=== PATIENT | female | born 1990 | race Caucasian/White ===

== ENCOUNTER 2021-06-17 06:10 | Inpatient (IN) | payer MEDICAID, SELFPAY ==
[2021-06-17] VITALS (29 sets, daily range): BP systolic 95–151; BP diastolic 50–93; PULSE 41–137; RESP 16; TEMP 36.3–36.8; O2SAT 81–100; BMI 24.4
[2021-06-17 06:39] LABS: Absolute Lymphocyte Count 2.88 X10^3/uL (0.83-4.51); Absolute Neutrophil Count 12.2 X10^3/uL (2.0-7.7); Basophil# 0.06 X10^3/uL; Basophil% 0.4 % (0-1); Eosinophil# 0.15 X10^3/uL; Eosinophils% 0.9 % (0-5); Hematocrit 32.9 % (37-47); Hemoglobin 10.9 g/dL (12.0-15.0); Lymphocyte # 2.88 X10^3/ul (0.83-4.51); Lymphocyte % 17.6 % (19-41); Mean Corp Hgb Conc 33.1 g/dL (32-36); Mean Corpuscular Hgb 31.4 pg (27.0-32.0); Mean Corpuscular Volume 94.8 fL (81-99); Mean Platelet Vol. 11.1 fl (6.2-12.0); Monocyte# 0.99 X10^3/uL; Monocyte% 6.1 % (0-10); NRBC Flagged by Analyzer 0 % (0-5); Neutrophil # 12.15 X10^3/uL (2.7-7.7); Neutrophil % 74.3 % (47-70); Platelet Count 222 K/mm3 (150-450); RBC Distribution Width CV 12.8 % (11.6-14.6); Red Blood Count 3.47 M/mm3 (4.2-5.4); White Blood Count 16.4 K/mm3 (4.4-11.0)
[2021-06-17] MEDS: Lactated Ringers 1,000 ML 50 ML IV (06:45)
[2021-06-17] MEDS: Lactated Ringers 500 ML 999 ML IV (06:45)
--- NOTE | 2021-06-17 07:11 | PCM.HP.OB ---
[facility] - [facility] Date of Admission: 06/17/21 HPI Narrative LENNY MEYERS, is a 30 year old at 37.3 weeks gestation that presents to triage with contractions. Patient is seen by [facility] office. She was scheduled for an induction of labor tomorrow for severe IUGR at [facility]. EFW 4%, MITESH normal. complicated by subutex use, hep c +, and daily tobacco use. Patient reports visiting family here in town and started having contractions at 0230. Denies any loss of fluid or vaginal bleeding. Positive movement. Maternal Data Information PAOLA Calculator Estimated Delivery Date Method Current WG Current Estimate 07/05/21 Manual 37w 3d PFSH PFS Medical History History of prior with IUGR IUGR (intrauterine growth restriction) in prior , Home Medications vit,[id number] [PNV 29-1] tab 06/17/21 [History Last Taken Unknown] Allergy/AdvReac Type Severity Reaction Status Date / Time sulfamethoxazole Allergy PT UNSURE Verified 06/17/21 07:24 [From ] OF REACTION trimethoprim [From ] Allergy PT UNSURE Verified 06/17/21 07:24 OF REACTION Surgical History H/O wisdom tooth extraction Social History Smoking Status: Current every day smoker History Elective abortions Hx Para 4 Spontaneous abortions Hx # Term Pregnancies Ectopic pregnancies Hx # Pregnancies Multiple births # of living children NST FHR Rate Baby A Baseline: 125 Variability:: Moderate Accelerations:: 15 x 15 Decelerations:: None NST Reactive:: Yes FHR Category:: Category I Uterine Activity:: TOCO reading 2-4 minutes ROS Eyes Eyes: Denies blurry vision, change in vision or spots in vision ENT HEENT: Denies dizziness or headache(s) Cardiovascular Cardiovascular: Denies abdominal pain, chest pain or dyspnea Respiratory/Chest Respiratory/Chest: Denies cough, dyspnea, shortness of breath at rest or shortness of breath with exertion Gastrointestinal Gastrointestinal: Denies abdominal pain, diarrhea or vomiting Genitourinary Genitourinary: Denies change in urinary stream, difficulty urinating or dysuria Musculoskeletal Musculoskeletal: Reports none Integumentary Integumentary: Denies rash Neurologic Neurologic: Denies dizziness, headache(s), memory loss or weakness Psychiatric Psychiatric: Reports none Vital Signs Vital Signs Vital Signs: 06/17/21 06:18 Temperature 97.3 F L Temperature Source Temporal Pulse Rate 75 Blood Pressure 151/93 H BP Systolic 151 BP Diastolic 93 Weight Weight: 125 lb Body Mass Index (BMI) 24.4 Physical Exam Const alert, oriented x3 and no apparent distress General Appearance: cooperative Orientation / Consciousness: awake Exam Limitations: no limitations HEENT normocephalic Head and Scalp: normal to inspection Eyes General Eye: normal appearance of both eyes Neck full ROM and no lymphadenopathy Lymph Lymphatic: no lymphadenopathy noted Chest inspection of chest normal Resp normal respiratory effort, normal air movement and clear to auscultation bilaterally Effort and Inspection: able to speak in complete sentences and symmetric chest movement Cardio regular rate and regular rhythm GI normal to inspection, nondistended, normoactive bowel sounds Manual OB Exam: dilated 6 and other bulging bag Back/Spine normal ROM Extremity full ROM and no calf tenderness Skin no rashes or lesions noted General Skin Exam: no breakdown Neuro oriented x3 and CN's II-XII intact bilaterally Psych mental status grossly normal and thought process normal Labs Labs Labs: Blood Type Pending Antibody Screen Pending Hct 32.9 % (37-47) L Hgb 10.9 g/dL (12.0-15.0) L O+ Rubella immune HB - neg HC + positive RPR- NR HIV- NR GBS neg COVID- 19- negative Assessment & Plan (1) IUGR, : (2) 37 weeks gestation of : (3) Spontaneous onset of labor: (4) Active labor: (5) complicated by subutex maintenance, antepartum: (6) Hepatitis C: PLAN: Admit to L&D Routine labs IV fluids per protocol GBS negative COVID-19 negative Cat 1 tracing - NST reactive Epidural when indicated Anticipate Dr. Ro notified of admission and is collaborating physician
[2021-06-17] MEDS: fentaNYL-bupivacaine (epidural) 100 ML BAG EPIDURAL (07:50)
[2021-06-17] MEDS: Oxytocin 30 units/NS 500 ml 30 UNITS/500 ML IV.SOLN 334 UNITS IV (08:17)
--- NOTE | 2021-06-17 08:42 | OP.PCM_ITS ---
Assessment & Plan (1) Hepatitis C: (2) complicated by subutex maintenance, antepartum: (3) 37 weeks gestation of : (4) IUGR, : Maternal Data Information PAOLA Calculator Estimated Delivery Date Method Current WG Current Estimate 07/05/21 Manual 37w 3d Final PAOLA: 07/05/21 Gestational age: 37 w 3 d Vaginal Delivery Maternal Presentation Maternal Presentation: Active Labor Operative Information Date of Procedure: 06/17/21 Pre-Operative Diagnosis: IUGR, labor Post-Operative Diagnosis: same Surgery / Procedure Performed: Spontaneous Vaginal Delivery Type of Anesthesia: Epidural Special Medications: none Drain: - (none) Estimated Blood Loss: 200 Time of Delivery: 08:16 Findings Description of Procedure: I arrived and there were prolonged decelerations, heart rate recovered in between. Patient was complete. Bladder was emptied with a straight catheter. The head was delivered ALKA over intact perineum. Remainder of was delivered in < 15 seconds with minimal tracti on and one push. Spont. delivery of placenta intact with 3 vessel cord. Cervix and vagina intact. Sponge and needle count correct. Vaginal sweep completed by me. Uterus slightly boggy, atony without hemorrhage. Responded to uterine massage and one dose of methergine. Apgars are pending at time of delivery note, permanent waver assessing Presentation: ALKA Amniotic Fluid Description: Bloody Placental Delivery Description: Spontaneous Placenta Disposition: Sent to Pathology Cord Vessel Description: 3 Vessels Cord Entanglement: None Cord Gases: ABG and VBG Infant A Gender: Male Delayed Cord Clamping: Yes Post Vaginal Delivery Medications Given After Delivery: IV Pitocin and IM Methergin Episiotomy Description: None Laceration: None Complication Complications: None Admit VTE Documentation VTE Present on Admission: No VTE Mechan Device Prophylaxis: None VTE Pharm Prophylaxis Ordered: No Reason Prophylaxis Not Ordered: Procedure Not Indicated
--- NOTE | 2021-06-17 09:12 | CASEMGMT ---
Social Work Labor and Delivery Unit Responded to OB-ERT this morning. Offered support to the reported father of baby (FOB) Kevin. Assisted Kevin with preparing to go back to the surgical area where the patient/mother of baby (MOB) was moved. FOB reports that this would be the fourth baby. FOB appearing dazed, as evidenced by staring blankly at this internal communications writer and giving short and delayed responses. Affect appearing blunted. Offered support. Stayed with the FOB until FOB able to be with the MOB. -SABRINA Washburn, ARCHITECTURE INTERN *This note was generated with [employer] software. It may contain incorrect words, spelling, and punctuation that were not noted in review of the chart prior to signing*
[2021-06-17 09:38] LABS: Amphetamine Urine VISTA NEGATIVE (<1000 ng/mL); Barbiturate Urine VISTA NEGATIVE (< 200 ng/mL); Benzodiazepine Urine VISTA NEGATIVE (< 200 ng/mL); Cocaine Urine VISTA NEGATIVE (< 300 ng/mL); Ecstacy Urine VISTA NEGATIVE (< 500 ng/mL); Methadone Urine VISTA NEGATIVE (< 300 ng/mL); PCP Urine VISTA NEGATIVE (< 25 ng/mL); THC Urine VISTA NEGATIVE (< 50 ng/mL); Vista UDS pH Range 6
[2021-06-17] MEDS: Acetaminophen 500 MG Tablet PO (10:35)
--- NOTE | 2021-06-18 09:06 | CASEMGMT ---
Social Work Labor and Delivery This commercial insurance underwriter had received reports from nursing staff regarding this patient having a history of prescribed Subutex, but also patient's endorsement of patient taking less than prescribed. Per Shantal Matute RN the patient had endorsed history of children services after of last baby due to the hospital being concerned about illicit use of Subutex. 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 Received notice from nursing that patient was discharged last evening, 06-17-2021, due baby being transferred to [facility] main [place]. Called [facility] NICU social insurance adviser Juancarlos Jordan and provided handoff on this family. Juancarlos will follow up for needs and referrals for this family. -LATANYA Washburn, ROBOTIC WELDER
== END 2021-06-17 19:30 | disposition home or self-care (01) | DRG 560 ==
PROVIDERS: Advanced Practice Midwife; Admitting Provider Obstetrics & Gynecology; Visit Provider Obstetrics & Gynecology
DX: O76 Abnormality in fetal heart rate and rhythm complicating labor and delivery (principal); O36.5930 Maternal care for other known or suspected poor fetal growth, third trimester, not applicable or unspecified; O98.42 Viral hepatitis complicating childbirth; B19.20 Unspecified viral hepatitis C without hepatic coma; O99.324 Drug use complicating childbirth; F11.90 Opioid use, unspecified, uncomplicated; O99.334 Smoking (tobacco) complicating childbirth; F17.200 Nicotine dependence, unspecified, uncomplicated; Z3A.37 37 weeks gestation of pregnancy; Z37.0 Single live birth; Z87.59 Personal history of other complications of pregnancy, childbirth and the puerperium
CPT/HCPCS: 59025; 59050; 80307; 85025; 86850; 86900; 86901; 87426; 99218; J7120; G0378